=== PATIENT | male | born 1950 | race Caucasian/White ===

== ENCOUNTER → 2016-07-11 | Outpatient (CLI) | payer BC ==
[~2016-07-11] MED LIST: BENICAR40 MG PO; CIPRO 500MG TA500 MG PO; KENALOG TP; LEVSIN 0.10.125 MG/T PO; NEOMYCIN S500 MG/TAB; NORCO 325 MG-51 TAB PO; NYSTATIN CREAM15 GM TP; PRIL40 PO; TUMS500 MG PO; TYLENOL ARTHRI650 M1 PO; VALIUM 5MG T5 MG/TAB
== END ==
LOC: COL.VAS 12:54
DX: M79.89 Other specified soft tissue disorders (principal); I27.2 Other secondary pulmonary hypertension; D72.0 Genetic anomalies of leukocytes

== ENCOUNTER → 2017-02-17 | Outpatient (CLI) | payer BC, MEDICARE | LOC: COL.RAD 10:11 | DX: R59.0 Localized enlarged lymph nodes (principal); R06.02 Shortness of breath; Z86.711 Personal history of pulmonary embolism | CPT/HCPCS: Q9967 ==

== ENCOUNTER 2017-06-02 08:30 | Emergency (ER) | payer OTHER ==
[~2017-06-02] VITALS: Ht 177.8 cm; Wt 118.2 kg
[2017-06-02 08:34] VITALS: TEMP 98
[2017-06-02 09:53] VITALS: BP 152/70; PULSE 70
== END 2017-06-02 09:58 | disposition home or self-care (01) ==
LOC: COL.ER 08:30
DX: S00.83XA Contusion of other part of head, initial encounter (principal); S05.01XA Injury of conjunctiva and corneal abrasion without foreign body, right eye, initial encounter; I10 Essential (primary) hypertension; H54.8 Legal blindness, as defined in USA; Z85.46 Personal history of malignant neoplasm of prostate; W00.0XXA Fall on same level due to ice and snow, initial encounter; W22.8XXA Striking against or struck by other objects, initial encounter

== ENCOUNTER → 2019-01-11 | Outpatient (CLI) | payer MEDICARE | LOC: COL.VAS 14:01 | DX: M79.89 Other specified soft tissue disorders (principal); M79.662 Pain in left lower leg ==